=== PATIENT | female | born 1955 | race Caucasian/White ===

== ENCOUNTER 2017-05-08 12:18 | Outpatient (CLI) | payer OTHER | END 2017-05-08 12:19 | disposition home or self-care (01) | LOC: BICMAMMO 12:18 | PROVIDERS: ATTEND Obstetrics & Gynecology | DX: Z12.31 Encounter for screening mammogram for malignant neoplasm of breast (principal); N64.89 Other specified disorders of breast | CPT/HCPCS: 77063; 77067 ==

== ENCOUNTER 2017-05-14 09:46 | Outpatient (CLI) | payer OTHER | END 2017-05-14 09:47 | disposition home or self-care (01) | LOC: BICMAMMO 09:46 | PROVIDERS: ATTEND Obstetrics & Gynecology | DX: N63.10 Unspecified lump in the right breast, unspecified quadrant (principal) | CPT/HCPCS: G0279 ==

== ENCOUNTER 2018-05-19 13:26 | Outpatient (CLI) | payer BC | END 2018-05-19 13:27 | disposition home or self-care (01) | LOC: BICMAMMO 13:26 | PROVIDERS: ATTEND Obstetrics & Gynecology | DX: Z12.31 Encounter for screening mammogram for malignant neoplasm of breast (principal); Z80.3 Family history of malignant neoplasm of breast | CPT/HCPCS: 77063; 77067 ==

== ENCOUNTER 2018-06-16 12:16 | Outpatient (CLI) | payer BC ==
[~2018-06-16 12:16] MED LIST: Iopamidol 370 76% 100 ML VIAL ONE; Iopamidol 370 76% 50 ML VIAL FS ONE
[2018-06-16 16:05] LABS: Estimated GFR-MDRD - POC Greater than 90
--- NOTE | 2018-06-16 17:06 | CT ---
CT ABDOMEN WITH CONTRAST CT PELVIS WITH CONTRAST: DATE: 06-16-18 HISTORY: 63-year-old female with left lower quadrant abdominal pain. History of diverticulitis. COMPARISON: None. TECHNIQUE: IV injection of iodinated contrast media: 95 ml Isovue 370 Oral contrast media: PO Isovue FINDINGS: There is a large number of diverticula throughout the descending colon and very large number of diver ticula throughout the sigmoid colon. There is no convincing evidence of diverticulitis. No abscess. N o extraluminal gas, ascites, or pleural effusion. Bilateral kidneys, abdominal aorta, adrenals, pancr eas, liver, spleen, and appendix are essentially normal. No small bowel dilation. No inguinal hernia. IMPRESSION: Severe diverticulosis of sigmoid and descending colon, but without convincing evidence of diverticuli tis. KELTON Gacria POS: [id number]
== END 2018-06-16 12:17 | disposition home or self-care (01) ==
LOC: CT 12:16
PROVIDERS: ATTEND Physician Assistant
DX: R10.32 Left lower quadrant pain (principal); K57.30 Diverticulosis of large intestine without perforation or abscess without bleeding
CPT/HCPCS: 74177; 82565; 87086; Q9967

== ENCOUNTER → 2018-07-22 | Outpatient (CLI) | payer BC | LOC: SLEEPLAB 07-22 17:00 | PROVIDERS: ATTEND Dentist General Practice | DX: G47.33 Obstructive sleep apnea (adult) (pediatric) (principal); R53.83 Other fatigue | CPT/HCPCS: 95806 ==